=== PATIENT | female | born 1965 | race Caucasian/White ===

== ENCOUNTER 2020-03-23 10:46 | Emergency (ER) | payer BC ==
[~2020-03-23] VITALS: Ht 165.1 cm; Wt 64.4 kg
[2020-03-23 11:15] VITALS: BP 139/81
--- NOTE | 2020-03-23 11:21 | Emergency Room Report ---
History of Present Illness General Chief Complaint: Head Injury Source: Patient Present Illness HPI The patient tripped over a parking block yesterday. She hit her knees and also her forehead. There was no loss of consciousness. She denies any nausea or vomiting. There is significant swelling in her forehead and abrasions there and also on her knees. She is here for evaluation. She rates the pain in her forehead 1/10. She says it mainly feels that there is something abnormal there. She denies any visual changes. She is not take any blood thinners. Patient denies any exposure to any COVID-19 positive contacts. No fevers, chills, sore throat, chest pain, palpitations, diarrhea, dysuria, abdominal pain, shortness of breath, depression, anxiety, dizziness. Tetanus up-to-date. 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 Reviewed Nursing Documentation: PMH: Agreed; PSxH: Agreed Nursing Documentation-PMH Past Medical History: No History, Except For Hx Diabetes: No - hypothirodism Review of Systems All Other Systems: negative except mentioned in HPI Physical Exam Vital Signs Date Time Temp Pulse Resp B/P (MAP) Pulse Ox O2 Delivery O2 Flow Rate FiO2 03/23/20 10:52 98.2 71 16 139/81 (100) 98 Room Air Sp02 EP Interpretation: reviewed, normal General Appearance: well appearing, no apparent distress, GCS 15 Head: normocephalic, other - Hematoma forehead Eyes: bilateral eye normal inspection, bilateral eye PERRL, bilateral eye EOMI ENT: moist mucus membranes Neck: full range of motion, supple, no bony tend Respiratory: normal inspection, chest non-tender Cardiovascular #1: regular rate, rhythm Cardiovascular #2: 2+ radial (R) Gastrointestinal: normal inspection Musculoskeletal: gait/station normal, back normal Neurologic: alert, motor strength/tone normal, 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 Differential includes concussion, hematoma, abrasions and contusions amongst others. Based on exam and history CT of the head is not indicated. Patient offered Tylenol but declined. Vaccination status is up-to-date. Bacitracin applied to abrasions. Discussed expected treatment course and findings with patient. Suggested outpatient follow-up. Patient stable for outpatient observation and treatment. Last Vital Signs Date Time Temp Pulse Resp B/P (MAP) Pulse Ox O2 Delivery O2 Flow Rate FiO2 03/23/20 11:30 98.2 85 16 139/81 98 Room Air Status: improved Disposition: HOME, SELF-CARE Condition: Improved Scripts Bacitracin (Bacitracin) 28.4 Gm Oint...g. 1 APPLIC TOPIC BID, #20 GM Prov: Rayn Benito MD 03/23/20 Ryan Benito MD Mar 23, 2020 11:21
[2020-03-23] MEDS ORDERED: BACITRACIN15 GM TOPIC (11:23)
[2020-03-23 11:30] VITALS: BP 139/81
[2020-03-23] MEDS ORDERED: Bacitracin Oint UD TOPIC ONE (11:30)
== END 2020-03-23 11:35 | disposition home or self-care (01) ==
LOC: EMR 11:32
DX: S00.83XA Contusion of other part of head, initial encounter (principal); S80.212A Abrasion, left knee, initial encounter; E03.9 Hypothyroidism, unspecified; W01.10XA Fall on same level from slipping, tripping and stumbling with subsequent striking against unspecified object, initial encounter; Y93.01 Activity, walking, marching and hiking; Y92.481 Parking lot as the place of occurrence of the external cause
CPT/HCPCS: 99282